=== PATIENT | female | born 1990 | race Two or more races ===

== ENCOUNTER 2024-09-28 22:36 | Emergency (ER) | payer MEDICAID, SELFPAY ==
[2024-09-28 22:36] VITALS: BMI 31.4
[2024-09-28 22:45] VITALS: BP 157/90; PULSE 105; RESP 18; TEMP 37.1; O2SAT 99
[2024-09-28] MEDS: predniSONE 20 MG TABLET 60 MG PO (23:14)
--- NOTE | 2024-09-29 04:04 | PD.EDALLER ---
ED Allergic Reaction RME/HPI General Chief complaint: Skin/Abscess/Foreign Body Stated complaint: RASH ALL OVER BODY Time Seen by Provider: 09/28/24 22:50 Arrival date/time: 09/28/24 22:36 34F with history of HTN and DM presents to ED with several days of generalized itchy rash. Patient denies new meds, foods, and hygiene products. Patient took OTC antihistamines w/o relief. Limitations: no limitations Related Data Previous Rx's ?Medication ?Instructions ?Recorded amlodipine 5 mg tablet 5 mg PO QDAY 30 days #30 tabs 02/25/23 blood sugar diagnostic (Accu-Chek #100 ea 02/25/23 Guide test strips) blood-glucose meter (Accu-Chek #1 ea 02/25/23 Guide Glucose Meter) insulin glargine 100 unit/mL 18 unit (0.18 mL) subcut HS 30 02/25/23 subcutaneous solution (Lantus days #6 mL U-100 Insulin) lancets 23 gauge (Acti-Etienne #200 ea 02/25/23 Lancets) pen needle, diabetic 29 gauge x #100 ea 02/25/23 1/2 (1st Tier Unifine Pentips Plus) valsartan 80 mg tablet 80 mg PO QDAY 30 days #30 tabs 02/25/23 fluconazole 150 mg tablet 150 mg PO QDAY 1 dose #1 tab 05/15/23 Allergies Allergy/AdvReac Type Severity Reaction Status Date / Time No Known Allergies Allergy Verified 09/28/24 22:36 Review of Systems Review of Systems Systems Reviewed: All systems reviewed, normal except as documented Constitutional Constitutional: Reports system reviewed and no additional complaints, except as documented, Denies fever(s) and Denies headache(s) ENT Ears, Nose, Mouth, and Throat: Denies disequilibrium and Denies headache(s) Cardiovascular Cardiovascular: Reports system reviewed and no additional complaints, except as documented, Denies chest pain and Denies dyspnea Respiratory Respiratory: Reports system reviewed and no additional complaints, except as documented, Denies cough and Denies dyspnea Gastrointestinal Gastrointestinal: Reports system reviewed and no additional complaints, except as documented, Denies abdominal pain, Denies nausea and Denies vomiting Integumentary/Breasts Skin/Breast: Reports as per HPI, Reports pruritus and Reports rash Neurologic Neurologic: Reports system reviewed and no additional complaints, except as documented, Denies confusion, Denies disequilibrium and Denies headache(s) Psychiatric Psychiatric: Denies confusion Past Medical History Past Medical History NEUROLOGIC: Negative Neurological Disorders or Seizures CARDIAC: Negative Cardiac Disorders or Congestive Heart Failure RESPIRATORY: Negative Chronic Obstructive Pulmonary Disease (COPD), Asthma or Bronchitis GASTROINTESTINAL: Negative Gastrointestinal Disorders, Hepatitis or Colorectal Cancer GENITOURINARY: Negative Genitourinary Disorders or Renal Disease REPRODUCTIVE: Positive Previous Pregnancies; Negative Breast Cancer, Endometriosis, Genital Herpes, Gonorrhea, Pelvic Inflammatory Disease, Syphilis or Uterine Prolapse MUSCULOSKELETAL: Positive Musculoskeletal Disorders and Fractures; Negative Bone Cancer ENDOCRINE: Positive Endocrine Disorders and Diabetes Mellitus Type 2; Negative Diabetes Mellitus Type 1 HEMATOLOGIC: Negative Blood Disorders, Anemia, Leukemia, Hemophilia, Thalassemia, Sickle Cell Disease or Clotting Problems OTHER HISTORY: Positive Hospitalization and Anesthesia Reactions; Negative Autoimmune Disease, Down Syndrome, Developmental Delay, Shingles, Falls, Blood Transfusions, Blood Transfusion Reaction, MRSA, VRSA, Vancomycin-Resistant Enterococci, Human Immunodeficiency Virus (HIV), Chicken Pox, Measles, Mumps, Rubella (Kosovan Measles), Pertussis, Clostridium Difficile, Breast Cancer, Cervical Cancer, Colorectal Cancer, Lung Cancer or Ovarian Cancer Family History FAMILY HISTORY: Positive Family Psychiatric Problems, Family Respiratory Disorders, Family Cardiac Disorders, Family Gastrointestinal Problems and Family Cancer; Negative Family Surgery or Family Anesthesia Reaction Surgical History SURGICAL: Positive Arthroscopy, Tubal Ligation and Section; Negative Ear Surgery, Abdominal Surgery, Nephrectomy or Neurologic Surgery Social History SMOKING STATUS: Never smoker SECOND HAND EXPOSURE: No SUBSTANCE USE: does not use ED Exam General Limitations: Present no limitations General appearance: Present alert and in no apparent distress Head Head exam: Present atraumatic Eye Eye exam: Present normal appearance, PERRL and EOMI ENT ENT exam: Present normal exam, normal oropharynx and mucous membranes moist Neck Neck exam: Present normal inspection, full ROM and trachea midline Chest Chest inspection: Present normal inspection and symmetric chest wall rise Respiratory Respiratory exam: Present normal lung sounds bilaterally Cardiovascular Cardiovascular exam: Present regular rate, normal rhythm and normal heart sounds Abdominal Exam Abdominal exam: Present soft and normal bowel sounds Extremities Exam Extremities exam: Present normal inspection and full ROM Back Exam Back exam: Present normal inspection and full ROM Neurological Exam Neurological exam: Present alert, oriented X3 and CN II-XII intact Psychiatric Psychiatric exam: Present normal affect and normal mood Skin Skin exam: Present warm, dry, intact, normal color and rash Course Quality Measures none Orders Category Date Time Status predniSONE Med 09/28/24 22:50 Discontinued 60 mg PO X1 ONE Vital Signs Vital signs: Vital Signs Temperature 98.7 F 09/28/24 22:45 Pulse Rate 105 H 09/28/24 22:45 Respiratory Rate 18 09/28/24 22:45 Blood Pressure 157/90 H 09/28/24 22:45 Pulse Oximetry (%) 99 09/28/24 22:45 Oxygen Delivery Method Room Air 09/28/24 22:45 O2 at 99% on RA and WNLs Allergic Reaction MDM Narrative MDM Narrative:: 34F with history of HTN and DM presents to ED with several days of generalized itchy rash. Patient denies new meds, foods, and hygiene products. Patient took OTC antihistamines w/o relief. Physical exam generalized somewhat urticarial rash. Unclear if urticaria from scratching or original rash. Normal WOB. Patient is afebrile, calm, and alert. Steroids improved rash. Counseled to keep an eye on sugars since patient has DM1. Patient data External records reviewed:: [facility] previous records Clinical information provided by:: patient Social determinants that could affect healthcare access:: none Patient has the following chronic illnesses:: HTN and DM How is presenting disease/condition affected by chronic disease/condition?: exacerbated by Evaluation data The following diagnostics were reviewed and interpreted by me:: other (specify) (none) Lab and/or radiology exams considered but not ordered:: not ordered Interpretation Summary: n/a Medications / Prescriptions Medications or Prescriptions considered but not ordered:: ordered Medication administrations:: Medication Administration History Discontinued Medications Prednisone (Prednisone 20 Mg Tablet) 60 mg PO X1 ONE Stop: 09/28/24 22:51 Last Admin: 09/28/24 23:14 Dose: 60 mg Documented By: RC above Consultations Consultation(s) initiated? (list below): No Diagnosis Differential Diagnosis allergic reaction: anaphylaxis, allergic reaction, angioedema, contact dermatitis, adverse reaction to drug, viral enanthem, urticaria and other (rash) Most likely diagnosis given after review of the tests above:: rash Admission Indicated Admission indicated?: not indicated Admission Request Was there a request for admission?: No Disposition Plan Disposition Plan: Discharge Discharge Attestation Discharge Attestation: The patient and all family members were given an opportunity to ask questions and understood the discharge instructions. Discharge instructions specifically effects, indications for sooner follow up or return to the emergency department, and the expected course of current diagnosis. Patient condition: Stable Discharge Plan Plan Patient Disposition: HOME (Self Care) Discharge Disposition comment: Stable Prescriptions/Referrals Prescriptions/Med Rec: No Action amlodipine 5 mg Tablet 5 mg PO QDAY 30 Days Qty: 30 2RF insulin glargine [Lantus U-100 Insulin] 100 unit/mL Solution 18 unit subcut HS 30 Days Qty: 6 2RF valsartan 80 mg Tablet 80 mg PO QDAY 30 Days Qty: 30 2RF (DME) blood-glucose meter [Accu-Chek Guide Glucose Meter] Misc See Rx Instructions .Route Qty: 1 0RF Rx Instructions: As directed (DME) Acti-Etienne Lancets 23 gauge misc See Rx Instructions .Route Qty: 200 1RF Rx Instructions: As directed (DME) Accu-Chek Guide test strips Strip See Rx Instructions .Route Qty: 100 2RF Rx Instructions: As directed (DME) pen needle, diabetic [1st Tier Unifine Pentips Plus] 29 gauge x 1/2 needle See Rx Instructions .Route Qty: 100 2RF Rx Instructions: As directed fluconazole 150 mg tablet 150 mg PO QDAY Qty: 1 0RF Rx Instructions: administer on day 1 of therapy Referrals: Jacob Blake MD [Primary Care Provider] - In 1 week Problem List Clinical Impression: Rash Patient/Caregiver Discharge Instructions Education Materials: ED Dermatitis Non Specific Rash Additional Instructions: Please follow-up with PCP within 24-48 hours and return immediately if symptoms worsen. Take OTC antihistamine as needed until symptoms resolve. See PCP if you need more steroids. Print Language: Libyan Stand Alone Forms: Patient Portal Info Letter PA/[employer]IGNMENT SPECIALIST Supervising Physician REGINA/[employer] ALIGNMENT SPECIALIST Supervising Physician: Dr. Gray
== END 2024-09-29 00:56 | disposition home or self-care (01) ==
PROVIDERS: Emergency Provider Emergency Medicine; PCP Family Medicine
DX: R21 Rash and other nonspecific skin eruption (principal)
CPT/HCPCS: 99282; J7512